=== PATIENT | female | born 2000 | race American Indian/Alaskan Native ===

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

== ENCOUNTER 2022-02-12 11:15 | Outpatient (CLI) | payer BC ==
--- NOTE | 2022-02-13 08:42 | Ultrasound Report ---
ULTRASOUND BREAST RIGHT LIMITED, 02/12/2022 CLINICAL INFORMATION / INDICATION: N63.12 RT. BREAST LUMP,UPPER INNER QUANDRANT. 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 TECHNIQUE: Targeted ultrasound evaluation was performed of the area of interest. COMPARISON: Prior right breast ultrasound 08/14/2020 FINDINGS: Redemonstration of a lobulated oval circumscribed hypoechoic mass in the right breast 1:00 position l ocated 5 cm from the nipple, currently measuring up to 3.4 x 1.8 x 3.1 cm, previously measuring up to 3.1 x 1.2 x 2.4 cm. A biopsy clip is seen within the mass. IMPRESSION: 1. The previously biopsied fibroadenoma in the 1:00 right breast is increased in size compared with t he prior examination. Because of the increase in size, surgical consultation is recommended to consid er repeat biopsy versus excision. Follow up recommendation: Surgical consult BI-RADS Category 4: SUSPICIOUS FOR MALIGNANCY. A normal or "negative" report should not preclude biopsy or follow-up of a clinically suspicious find ing. Signer Name: Vanna Bonilla MD Signed: 02/13/2022 8:38 AM Workstation Name: [id number]
== END 2022-02-12 11:16 | disposition home or self-care (01) ==
LOC: US 11:15
PROVIDERS: ATTEND Obstetrics & Gynecology
DX: N63.12 Unspecified lump in the right breast, upper inner quadrant (principal)